=== PATIENT | female | born 1990 | race Caucasian/White ===

== ENCOUNTER → 2023-01-14 | Outpatient (REF) | payer MEDICAID, BC | LOC: M PLALAB 11:23 | PROVIDERS: ATTEND Advanced Practice Midwife | DX: O23.592 Infection of other part of genital tract in pregnancy, second trimester (principal) ==

== ENCOUNTER 2023-01-23 13:44 | Emergency (ER) | payer BC, MEDICAID ==
[~2023-01-23] VITALS: Ht 162.6 cm; Wt 81.4 kg
[2023-01-23] MEDS ORDERED: NS 1,000 ML IV ONE (15:10)
[2023-01-23] MEDS ORDERED: MECLIZINE 25 MG TABLET PO ONE (15:10)
[2023-01-23 15:40] LABS: BASO # 0.1 10^3/uL (0.0-0.2); BASO % 0.6 % (0.0-1.0); EOS # 0.1 10^3/uL (0.0-0.5); EOS % 0.9 % (0.0-3.0); HEMATOCRIT 36.9 % (36.0-47.0); HEMOGLOBIN 12.5 g/dl (12.0-15.5); LYMPH # 1.9 10^3/uL (1.5-5.0); LYMPH % 19.3 % (24.0-44.0); MEAN CORPUSCULAR HEMOGLOBIN 30.9 pg (27.0-33.0); MEAN CORPUSCULAR HGB CONC 33.9 g/dl (32.0-36.5); MEAN CORPUSCULAR VOLUME 91.3 fl (80.0-96.0); MONO # 0.5 10^3/uL (0.0-0.8); MONO % 5.2 % (2.0-8.0); NEUTROPHILS # 7.2 10^3/uL (1.5-8.5); NEUTROPHILS % 73.7 % (36.0-66.0); PLATELET COUNT, AUTOMATED 245 10^3/uL (150-450); RED BLOOD COUNT 4.04 10^6/uL (4.00-5.40); WHITE BLOOD COUNT 9.8 10^3/uL (4.0-10.0)
[2023-01-23] MEDS ORDERED: ONDANSETRON 4MG 2ML VIAL IV ONE (16:00)
[2023-01-23 16:01] LABS: INR 0.99; PROTHROMBIN TIME 12.8 SECONDS (12.5-14.5)
[2023-01-23 16:02] LABS: PARTIAL THROMBOPLASTIN TIME 25.8 SECONDS (24.8-34.2)
[2023-01-23 16:08] LABS: FREE T4 1.07 NG/DL (0.89-1.76); THYROID STIMULATING HORMONE 1.966 uIU/ML (0.55-4.78)
[2023-01-23 16:11] LABS: ALBUMIN 2.9 G/DL (3.2-5.2); ALKALINE PHOSPHATASE 37 U/L (46-116); ALT/SGPT 16 U/L (7.0-40); AST/SGOT 40 U/L (<34); BILIRUBIN,DIRECT < 0.1 MG/DL (<0.4); BILIRUBIN,TOTAL 0.3 MG/DL (0.3-1.2); BLOOD UREA NITROGEN 8 MG/DL (9-23); CALCIUM LEVEL 8.5 MG/DL (8.5-10.1); CARBON DIOXIDE LEVEL 25 MMOL/L (20-31); CHLORIDE LEVEL 105 MMOL/L (98-107); CK-MB VALUE MASS 1.6 NG/ML (<3.6); CPK CREATINE PHOSPHOKINASE 84 U/L (34-145); CREATININE FOR GFR 0.47 MG/DL (0.55-1.30); GLOMERULAR FILTRATION RATE > 60.0 (>60); GLUCOSE, FASTING 90 MG/DL (60-100); MAGNESIUM LEVEL 1.8 MG/DL (1.8-2.4); POTASSIUM SERUM 5.1 MMOL/L (3.5-5.1); SODIUM LEVEL 138 MMOL/L (136-145); TOTAL PROTEIN 6.6 G/DL (5.7-8.2)
[2023-01-23] MEDS ORDERED: ONDA4TAB6 PO (18:01)
[2023-01-23] MEDS ORDERED: MECL-209 PO (18:01)
[2023-01-23 18:41] VITALS: BP 104/57; TEMP 98.7; O2SAT 98
== END 2023-01-23 18:36 | disposition home or self-care (01) ==
LOC: M ED 13:44
DX: H81.4 Vertigo of central origin (principal); E03.9 Hypothyroidism, unspecified; G43.909 Migraine, unspecified, not intractable, without status migrainosus; F17.200 Nicotine dependence, unspecified, uncomplicated; F12.10 Cannabis abuse, uncomplicated; Z79.83 Long term (current) use of bisphosphonates; Z79.899 Other long term (current) drug therapy
CPT/HCPCS: 76815; 80048; 80076; 81001; 82550; 82553; 83735; 84439; 84443; 85025; 85610; 85730; 93005; 93970; 96361; 96374; 99284; J2405

== ENCOUNTER → 2023-02-01 | Outpatient (CLI) | payer BC, MEDICAID ==
[~2023-02-01] MED LIST: MECL-209 PO; ONDA4TAB6 PO
== END ==
LOC: M RAD 09:04
PROVIDERS: ATTEND Advanced Practice Midwife
DX: O32.1XX0 Maternal care for breech presentation, not applicable or unspecified (principal); Z3A.19 19 weeks gestation of pregnancy

== ENCOUNTER → 2023-03-16 | Outpatient (CLI) | payer OTHER, SELFPAY ==
[2023-03-16 15:01] LABS: HEMATOCRIT 36.9 % (36.0-47.0); HEMOGLOBIN 12.4 g/dl (12.0-15.5); MEAN CORPUSCULAR HGB CONC 33.6 g/dl (32.0-36.5); MEAN CORPUSCULAR VOLUME 95.3 fl (80.0-96.0); PLATELET COUNT, AUTOMATED 285 10^3/uL (150-450); RED BLOOD COUNT 3.87 10^6/uL (4.00-5.40); WHITE BLOOD COUNT 11.1 10^3/uL (4.0-10.0)
[2023-03-16 15:33] LABS: HIV 1&2 SCREEN NEGATIVE (NEGATIVE)
[2023-03-16 15:41] LABS: HEPATITIS C VIRUS ABY INDEX 0.05 INDEX (<0.8)
[2023-03-16 16:07] LABS: CHLAMYDIA DNA AMPLIFICATION NEGATIVE (NEGATIVE); GC DNA AMPLIFICATION NEGATIVE (NEGATIVE)
[2023-03-16 17:00] LABS: FREE T4 0.88 NG/DL (0.89-1.76); THYROID STIMULATING HORMONE 2.794 uIU/ML (0.55-4.78)
== END ==
LOC: M PLALAB 11:05
PROVIDERS: ATTEND Advanced Practice Midwife
DX: O99.280 Endocrine, nutritional and metabolic diseases complicating pregnancy, unspecified trimester (principal); E03.9 Hypothyroidism, unspecified; Z3A.00 Weeks of gestation of pregnancy not specified

== ENCOUNTER 2023-03-17 18:33 | Emergency (ER) | payer MEDICAID, OTHER ==
[~2023-03-17] VITALS: Ht 162.6 cm; Wt 85.5 kg
[2023-03-17] MEDS ORDERED: LIDOCAINE 2% MDV 20ML VIAL SC ONE (21:25)
[2023-03-17 22:00] VITALS: BP 130/78; TEMP 97.3; O2SAT 98
== END 2023-03-17 22:01 | disposition home or self-care (01) ==
LOC: M ED 18:33
DX: S61.217A Laceration without foreign body of left little finger without damage to nail, initial encounter (principal); W25.XXXA Contact with sharp glass, initial encounter; E03.9 Hypothyroidism, unspecified; J45.909 Unspecified asthma, uncomplicated; F17.200 Nicotine dependence, unspecified, uncomplicated; Y92.009 Unspecified place in unspecified non-institutional (private) residence as the place of occurrence of the external cause; Y93.G1 Activity, food preparation and clean up; Y99.9 Unspecified external cause status; Z79.899 Other long term (current) drug therapy; Z79.83 Long term (current) use of bisphosphonates